=== PATIENT | male | born 1985 | race Two or more races ===

== ENCOUNTER 2025-01-30 01:23 | Emergency (ER) | payer BC, SELFPAY ==
[2025-01-30 01:24] VITALS: BMI 27.2
[2025-01-30 01:46] VITALS: BP 151/89; PULSE 68; RESP 17; TEMP 36.6; O2SAT 98
--- NOTE | 2025-01-30 01:54 | XR_ITS ---
Examination: Abdomen sonogram, Limited Date and time of exam: January 22, 2025, 0059 hrs. Indications: Right upper abdominal pain with vomiting today Technique: Real-time aguirre scale transabdominal sonographic images of the upper abdomen obtained. Findings: Gallbladder sludge Gallbladder wall 0.30 cm Common bile duct 0.4 cm Pancreatic head 2.8 cm Liver 16 cm fatty infiltration Normal hepatopedal portal venous flow Patent IVC Impression: Gallbladder sludge Mild gallbladder wall thickening, clinical correlation advised, consider HIDA scan or MRCP follow-up as clinically warranted
--- NOTE | 2025-01-30 01:54 | PD.EDRME ---
Rapid Medical Screening Exam RME Arrival date/time: 01/30/25 01:23 This is a case of 39-year-old male with no medical history came into the emergency room due to bilateral upper abdominal pain and epigastric pain for 3 days associated with nausea vomiting worsening of the pain thus patient decided to start consult here in the emergency room Chief Complaint: Abdominal Pain Time Seen by Provider: 01/30/25 01:53 Vital signs: Vital Signs Temperature 97.9 F 01/30/25 01:46 Pulse Rate 68 01/30/25 01:46 Respiratory Rate 17 01/30/25 01:46 Blood Pressure 151/89 H 01/30/25 01:46 Pulse Oximetry (%) 98 01/30/25 01:46 Oxygen Delivery Method Room Air 01/30/25 01:46
[2025-01-30 02:56] LABS: Basophils # (Auto) 0.1 Thou/mm3 (0.0-0.2); Basophils % (Auto) 1 % (0-2.5); Eosinophils # (Auto) 0.1 Thou/mm3 (0.0-0.5); Eosinophils % (Auto) 1 % (0-10); Hematocrit 42.4 % (41.0-53.0); Hemoglobin 14.7 g/dL (13.5-16.0); Immature Granulocytes Auto 0.05 Thou/mm3 (0.00-0.00); Lymphocytes # (Auto) 2.2 Thou/mm3 (1.0-4.8); Lymphocytes % (Auto) 20 % (10-50); Mean Corpuscular HGB Conc 34.7 g/dl (31.0-37.0); Mean Corpuscular Hemoglobin 29.7 pg (25.0-35.0); Mean Corpuscular Volume 86 fL (80-100); Monocytes # (Auto) 0.8 Thou/mm3 (0.0-0.8); Monocytes % (Auto) 8 % (0-12); Neutrophils # (Auto) 7.4 Thou/mm3 (1.8-7.7); Neutrophils % (Auto) 70 % (37-80); Nucleated Red Blood Cell # 0.00 Thou/mm3 (0.00-0.00); Nucleated Red Blood Cell % 0 /100 WBC (0); Platelet Count 305 Thou/mm3 (140-440); RDW Standard Deviation 39.3 fL (35.1-43.9); Red Blood Count 4.95 Miln/mm3 (4.50-5.90); White Blood Count 10.6 Thou/mm3 (3.8-10.6)
[2025-01-30 03:19] LABS: Alanine Aminotransferase 37 U/L (10-49); Albumin, Serum 4.9 gm/dL (3.5-5.0); Albumin/Globulin Ratio 1.7 (1.2-2.2); Alkaline Phosphatase 53 U/L (46-116); Anion Gap 7 (7-16); Aspartate Amino Transferase 25 U/L (0-34); BUN/Creatinine Ratio 15 Ratio (12-20); Bilirubin,Total 0.5 mg/dL (0.3-1.2); Blood Urea Nitrogen 12 mg/dL (9-23); Calcium 10.3 mg/dL (8.3-10.6); Calcium (Corrected) 10.3 mg/dL (8.5-10.1); Carbon Dioxide 27.9 mMol/L (20.0-31.0); Chloride 103 mMol/L (98-107); Creatinine (Component) 0.8 mg/dL (0.6-1.3); Estimated Creatinine Clearance 145.6 mL/min (>60); Globulin 2.9 gm/dL (2.3-3.5); Glucose 115 mg/dL (74-106); Lipase 46 U/L (12-53); Osmolality,Calculated 276 (275-295); Potassium 4.1 mMol/L (3.4-5.1); Sodium 138 mMol/L (136-145); Total Protein 7.8 gm/dL (5.7-8.2); eGFR > 60 See Note
--- NOTE | 2025-01-30 03:20 | PRELIM_ITS ---
Gallbladder ultrasound. January 30, 2025 0158 hours Clinical history: Gallstone Comparison: No prior study is available for comparison. Findings: The liver measures 16 cm and demonstrates increased echogenicity, compatible with fatty infiltration. No focal mass or intrahepatic biliary ductal dilatation is identified. The gallbladder wall is thickened, measuring 3 mm, with internal echoes consistent with sludge. No gallstones or pericholecystic fluid are demonstrated. The common bile duct is normal in caliber, measuring 4 mm. The pancreas is visualized to the extent possible and appears within normal limits. The main portal vein measures 10.5 mm in diameter with hepatopetal flow. The inferior vena cava is patent. No free fluid is demonstrated on the submitted images. Impression: Gallbladder wall thickening with sludge. No gallstones or pericholecystic fluid identified. Consider correlation with nuclear medicine hepatobiliary scan. Fatty liver (hepatic steatosis). Report Electronically Signed By: Santiago Gordon 01/30/2025 3:19:18 AM [EST]
[2025-01-30] MEDS: HYDROcodone/APAP 5/325 TABLET 1 TAB PO (03:21)
[2025-01-30] MEDS: ONDANSETRON ODT 4 MG TABRAP PO (03:21)
[2025-01-30 04:07] LABS: Collection Type, Urine Clean Catch
[2025-01-30 04:11] LABS: Bilirubin,Urine Negative (Negative); Blood,Urine Negative (Negative); Clarity,Urine Clear (Clear/Hazy); Color,Urine Lt-Yellow (Lt Yel-Yel); Glucose, Urine Negative (Negative); Ketones,Urine Negative (Negative); Leukocyte Esterase,Urine Negative (Negative); Nitrite,Urine Negative (Negative); PH,Urine 6.5 (5.0-7.0); Protein,Urine Negative (Neg - Trace); RBC,Urine 3 /hpf (0-3); Specific Gravity,Urine 1.027 (1.001-1.035); Squamous Epithelial Cell,Urine 1 /hpf (0-5); Urobilinogen,Urine Negative mg/dL (0.0-1.0); WBC,Urine 1 /hpf (0-5)
--- NOTE | 2025-01-30 04:23 | EDNOTE_ITS ---
ED Abdominal Pain RME/HPI General Chief Complaint: Abdominal Pain Stated complaint: MID UPPER ABDOMEN PAIN Time seen by provider: 01/30/25 01:53 Arrival date/time: 01/30/25 01:23 This is a case of 39-year-old male with no medical history came in in the emergency room due to bilateral upper abdominal pain associated with nausea vomiting for 2 days worsening his symptoms this patient decided to sought consult here in the emergency room denies any diarrhea constipation or blood in stool Limitations: no limitations RME / HPI RME / HPI narrative: 01/30/25 01:23 This is a case of 39-year-old male with no medical history came into the emergency room due to bilateral upper abdominal pain and epigastric pain for 3 days associated with nausea vomiting worsening of the pain thus patient decided to start consult here in the emergency room Related Data Previous Rx's ?Medication ?Instructions ?Recorded hydrocodone 5 mg-acetaminophen 325 1 tab PO Q6H PRN pa in #12 tabs 01/30/25 mg tablet ondansetron 4 mg disintegrating 4 mg PO Q8H #20 tabs 0 01/30/25 tablet Allergies Allergy/AdvReac Type Severity Reaction Status Date / Time No Known Allergies Allergy Verified 01/30/25 01:24 Review of Systems Review of Systems Systems Reviewed: All systems reviewed, normal except as documented Constitutional Constitutional: Reports system reviewed and no additional complaints, except as documented and Reports as per HPI Cardiovascular Cardiovascular: Reports system reviewed and no additional complaints, except as documented and Reports as per HPI Gastrointestinal Gastrointestinal: Reports system reviewed and no additional complaints, except as documented and Reports as per HPI Genitourinary Genitourinary: Reports system reviewed and no additional complaints, except as documented and Reports as per HPI Musculoskeletal Musculoskeletal: Reports system reviewed and no additional complaints, except as documented and Reports as per HPI Neurologic Neurologic: Reports system reviewed and no additional complaints, except as documented and Reports as per HPI Past Medical History Social History SMOKING STATUS: Current some day smoker ED Exam General Limitations: Present no limitations General appearance: Present alert, in no apparent distress and other (Patient is awake alert oriented not in distress nontoxic looking well-hydrated well- nourished) Head Head exam: Present atraumatic, normocephalic and normal inspection Eye Eye exam: Present normal appearance, PERRL and EOMI ENT ENT exam: Present normal exam, normal oropharynx and mucous membranes moist Neck Neck exam: Present normal inspection, full ROM and trachea midline; Absent tenderness, meningismus, lymphadenopathy or thyromegaly Chest Chest inspection: Present normal inspection and symmetric chest wall rise; Absent tenderness Respiratory Respiratory exam: Present normal lung sounds bilaterally; Absent respiratory distress, wheezes, stridor, accessory muscle use or prolonged expiratory phase Cardiovascular Cardiovascular exam: Present regular rate, normal rhythm and normal heart sounds; Absent bradycardia, tachycardia, irregular rhythm, systolic murmur or diastolic murmur Abdominal Exam Abdominal exam: Present soft, tenderness (Tenderness in the epigastric area and right upper quadrant no guarding no rebound no rigidity negative psoas negative straight or negative Rovsing sign McBurney's negative Meeks sign negative CVA tenderness) and normal bowel sounds; Absent distention, guarding, rebound, rigidity, diminished bowel sounds, hyperactive bowel sounds, hypoactive bowel sounds, organomegaly, psoas sign, obturator sign, Meeks's sign, Rovsing's sign, tenderness at McBurney's Point or hernia Extremities Exam Extremities exam: Present normal inspection and full ROM Back Exam Back exam: Present normal inspection and full ROM Neurological Exam Neurological exam: Present alert, oriented X3, CN II-XII intact and normal gait; Absent motor sensory deficit Psychiatric Psychiatric exam: Present normal affect and normal mood Skin Skin exam: Present warm, dry, intact and normal color Course Quality Measures none Orders Category Date Time Status US gall bladder Stat Exams 01/30/25 01:54 Taken CBC Stat Lab 01/30/25 02:46 Completed Comprehensive Metabolic Panel Stat Lab 01/30/25 02:46 Completed Lipase Stat Lab 01/30/25 02:46 Completed Urinalysis Stat Lab 01/30/25 03:59 Completed HYDROcodone*/APAP 5/325 [Clay 5/325] Med 01/30/25 03:04 Discontinued 1 tab PO X1 ONE Ondansetron Odt [Zofran Odt] Med 01/30/25 03:04 Discontinued 4 mg PO X1 ONE Vital Signs Vital signs: Vital Signs Temperature 97.9 F 01/30/25 01:46 Pulse Rate 68 01/30/25 01:46 Respiratory Rate 17 01/30/25 01:46 Blood Pressure 151/89 H 01/30/25 01:46 Pulse Oximetry (%) 98 01/30/25 01:46 Oxygen Delivery Method Room Air 01/30/25 01:46 Oxygen saturation is 98% in room air normal Abdominal Pain MDM MDM Narrative MDM Narrative:: This is a case of 39-year-old male with no medical history came in in the emergency room due to bilateral upper abdominal pain associated with nausea vomiting for 2 days worsening his symptoms this patient decided to sought consult here in the emergency room denies any diarrhea constipation or blood in stool physical examination patient is awake alert oriented not in distress nontoxic looking well-hydrated well-nourished patient vital signs stable abdominal exam noted mild tenderness in the epigastric area and right upper quadrant but no guarding no rebound no rigidity negative psoas negative straight and negative Rovsing's negative Darren's negative Meeks sign negative CVA tende rness the rest of the physical examination and neurological exam is normal and unremarkable blood test showed no leukocytosis no anemia kidney and liver function is normal no electrolyte imbalance lipase is normal urinalysis is normal ultrasound of the gallbladder showed a gallbladder sludge and gallbladder wall thickening radiologist suggested HIDA scan at the time of exam HIDA scan is not available he was advised to return in the emergency room around 12 noon to perform HIDA scan if needed he was also advised to follow-up with PCP in 2 days for reevaluation and to be referred to [employer] sales consultant for fatty liver and gallbladder sludge for any worsening symptoms or any emergent concern return precaution in the ER was advised Patient was discharged with comfortable condition walking with stable gait. Patient verbalized no further complains explained diagnosis and answered patient question. Patient is comfortable with the proposed management plan including the need to follow up with his/her primary care physician and any specialist if applicable Discussed patient for any urgent condition or worsening sx, He/She needed to go to emergency room immediately or call 911. Patient acknowledge the responsibility to follow up as instructed and to monitor her/his symptoms. For any persistence of the symptoms for more than 3-5 days return precaution advised. Discussed the result of the test and was given printed discharge instruction Patient data External records reviewed:: [facility] previous records Clinical information provided by:: patient Social determinants that could affect healthcare access:: none Patient has the following chronic illnesses:: None How is presenting disease/condition affected by chronic disease/condition?: no chronic disease Evaluation data The following diagnostics were reviewed and interpreted by me:: lab results and radiology exam(s) Lab and/or radiology exams considered but not ordered:: Reviewed Interpretation Summary: Reviewed Medications / Prescriptions Medications or Prescriptions considered but not ordered:: Given Medication administrations:: Medication Administration History Discontinued Medications Hydrocodone Bitart/Acetaminophen (Hydrocodone/Apap 5/325 Tablet) 1 tab PO X1 ONE Stop: 01/30/25 03:05 Last Admin: 01/30/25 03:21 Dose: 1 tab Documented By: JENN Ondansetron HCl (Ondansetron Odt 4 Mg Tabrap) 4 mg PO X1 ONE; Protocol Stop: 01/30/25 03:05 Last Admin: 01/30/25 03:21 Dose: 4 mg Documented By: JENN Given Consultations Consultation(s) initiated? (list below): No Diagnosis Differential diagnosis abdominal pain: abdominal pain and other (Cholelithiasis gastritis) Most likely diagnosis given after review of the tests above:: Gallbladder sludge fatty liver Admission Indicated Admission indicated?: not indicated Explain why admission is indicated or not indicated:: Not indicated Admission Request Was there a request for admission?: No Admission Attestation Admission request attestation: Not indicated Disposition Plan Disposition Plan: Discharge Discharge Attestation Discharge Attestation: The patient and all family members were given an opportunity to ask questions and understood the discharge instructions. Discharge instructions specifically effects, indications for sooner follow up or return to the emergency department, and the expected course of current diagnosis. Patient condition: Stable Discharge Plan Plan Patient Disposition: HOME (Self Care) Patient condition on transfer: Stable Prescriptions/Referrals Prescriptions/Med Rec: New hydrocodone-acetaminophen 5-325 mg tablet 1 tab PO Q6H MDD max 4 tabs per day PRN (Reason: pain) Qty: 12 0RF ondansetron 4 mg tablet,disintegrating 4 mg PO Q8H Qty: 20 0RF Referrals: No Primary/Family,Physician [Primary Care Provider] - In 1 week Problem List Clinical Impression: Abdominal pain, Gallbladder sludge, Fatty liver Patient/Caregiver Discharge Instructions Education Materials: Tests for Liver Disease, Abdominal Pain, Nonalcoholic Fatty Liver ... Additional Instructions: It is very important to return in the emergency room today around 12 noon for reevaluation of gallbladder sludge for possible HIDA scan follow-up with your primary care physician in 2 days for reevaluation and to be referred to [employer] sales consultant for further evaluation and treatment of gallbladder sludge and fatty liver recurrence persistent worsening symptoms or any emergent concern call 911 or go to the nearest emergency room take your medication as directed keep hydrated avoid fatty fried high cholesterol dairy food avoid alcohol soda or coffee Print Language: Swedish Stand Alone Forms: Silvia Award Info., Patient Portal Info Letter PA/AIR TRAFFIC CONTROL EQUIPMENT REPAIRER Supervising Physician PA/AIR TRAFFIC CONTROL EQUIPMENT REPAIRER Supervising Physician: Dr. Hamilton
== END 2025-01-30 04:29 | disposition home or self-care (01) ==
PROVIDERS: Nurse Practitioner Family; Emergency Provider Emergency Medicine
DX: K76.0 Fatty (change of) liver, not elsewhere classified (principal); K82.8 Other specified diseases of gallbladder
CPT/HCPCS: 36415; 76705; 80053; 81001; 83690; 85025; 99283; Q0162; A9270

== ENCOUNTER 2025-01-30 12:30 | Inpatient (IN) | payer BC, SELFPAY ==
[2025-01-30 12:34] VITALS: BP 131/79; PULSE 62; RESP 16; TEMP 36.7; O2SAT 97
--- NOTE | 2025-01-30 13:24 | PD.EDRECHK ---
ED Recheck Abnl Lab Rx-RME/HPI General Chief Complaint: General Adult/Misc Complain Stated Complaint: RETURNED FOR REEVAL INSTRUCTED Time Seen by Provider: 01/30/25 13:19 Arrival date/time: 01/30/25 12:30 Limitations: no limitations RME / HPI RME / HPI narrative: DR. JODY MOLINA ED EVALUATION: 39-year-old male with history of gallstones presents to the Emergency Department after being called to return for treatment or further studies following an ultrasound performed last night, which confirmed gallstones. At that time, he experienced right upper abdominal pain, but he reports no pain currently. He denies nausea, vomiting, cough, or other symptoms. Past medical history otherwise noncontributory. Social history notable for marijuana use. Related Data Previous Rx's ?Medication ?Instructions ?Recorded hydrocodone 5 mg-acetaminophen 325 1 tab PO Q6H PRN pain #12 tabs 01/30/25 mg tablet Allergies Allergy/AdvReac Type Severity Reaction Status Date / Time No Known Allergies Allergy Verified 01/30/25 12:33 Review of Systems Review of Systems Systems Reviewed: All systems reviewed, normal except as documented Past Medical History Social History SMOKING STATUS: Never smoker SUBSTANCE USE: does not use ALCOHOL: Never ED Exam General Limitations: Present no limitations General appearance: Present alert and in no apparent distress Head Head exam: Present atraumatic, normocephalic and normal inspection Eye Eye exam: Present normal appearance, PERRL and EOMI ENT ENT exam: Present normal exam, normal oropharynx and mucous membranes moist Neck Neck exam: Present normal inspection, full ROM and trachea midline Chest Chest inspection: Present normal inspection and symmetric chest wall rise Respiratory Respiratory exam: Present normal lung sounds bilaterally Cardiovascular Cardiovascular exam: Present regular rate, normal rhythm and normal heart sounds Abdominal Exam Abdominal exam: Present soft; Absent distention, tenderness, guarding or rebound Extremities Exam Extremities exam: Present normal inspection and full ROM Back Exam Back exam: Present normal inspection and full ROM Neurological Exam Neurological exam: Present alert, oriented X3, CN II-XII intact and normal gait Psychiatric Psychiatric exam: Present normal affect and normal mood Skin Skin exam: Present warm, dry, intact and normal color Course Quality Measures none Orders Category Date Time Status CT Screening NOW Care 01/30/25 16:18 Completed MRI Screening NOW Care 01/30/25 13:27 Completed NPO after Midnight ONCE Care 01/30/25 20:24 Completed Diet NPO after Midnight Diet 01/31/25 00:[address] abdomen pelvis w con Stat Exams 01/30/25 16:18 Completed MR MRCP Stat Exams 01/31/25 Completed US abdomen limited Stat Exams 01/30/25 16:08 Completed Blood Culture (Lab) Stat Lab 01/30/25 19:55 Results CBC Stat Lab 01/30/25 13:55 Completed CMP [Comprehensive Metabolic Panel] Stat Lab 01/30/25 13:55 Completed Lipase Stat Lab 01/30/25 13:55 Completed cefTRIAXone/D5w 1gm IV premix [Rocephin/D5w 1gm IV Med 01/30/25 19:01 Discontinued premix] 1 gm in 50 ml IV STAT metroNIDAZOLE/NS 500 MG IVPB [Flagyl 500 mg IV] Med 01/30/25 19:01 Discontinued 500 mg in 100 ml IV STAT Vital Signs Vital signs: Vital Signs Temperature 98.1 F 01/30/25 12:34 Pulse Rate 62 01/30/25 12:34 Respiratory Rate 16 01/30/25 12:34 Blood Pressure 131/79 H 01/30/25 12:34 Pulse Oximetry (%) 97 01/30/25 12:34 Oxygen Delivery Method Room Air 01/30/25 12:34 Recheck / Abnormal Lab / Rx MDM Narrative MDM Narrative:: Patient presents for follow-up for his right upper quadrant abdominal pain. Patient was told to return to the emergency department today for a HIDA or MRCP. Unfortunately we do not have HIDA or MRCP capabilities. Patient has been asymptomatic, no fever no abdominal pain. I ordered repeat ultrasound as well as repeat labs. Repeat labs with normal T. bili however now has a mild transaminitis. CT scan shows findings concerning for possible acalculous cholecystitis. Will provide patient with antibiotics, care transitioned to oncoming provider Dr. Hamilton. Patient is pending results of his workup and safe dispo. I, Jacqueline Carlos, am scribing for and in the presence of Dr. Sebastian. Patient data External records reviewed:: [facility] previous records Clinical information provided by:: patient and spouse Social determinants that could affect healthcare access:: substance use (marijuana use) Patient has the following chronic illnesses:: Gallstones diagnosed last night. How is presenting disease/condition affected by chronic disease/condition?: exacerbated by Evaluation data The following diagnostics were reviewed and interpreted by me:: lab results and radiology exam(s) Lab and/or radiology exams considered but not ordered:: none Interpretation Summary: See MDM narrative above. Medications / Prescriptions Medications or Prescriptions considered but not ordered:: none Medication administrations:: Medication Administration History Discontinued Medications Bupivacaine HCl (Bupivacaine Mpf 0.5% 30 Ml Vial) Confirm Administered Dose 30 ml .ROUTE .STK-MED ONE Stop: 01/31/25 11:30 Cefoxitin Sodium (Cefoxitin Sod Inj 1 Gm Vial) Confirm Administered Dose 2 gm .ROUTE .STK-MED ONE Stop: 01/31/25 12:24 Dexamethasone Sodium Phosphate (Dexamethasone Sod Phos Inj 10 Mg/Ml Vial) Confirm Administered Dose 10 mg .ROUTE .STK-MED ONE Stop: 01/31/25 12:09 Fentanyl Citrate (Fentanyl Cit Inj 50 Mcg/Ml Amp 2ml) Confirm Administered Dose 100 mcg .ROUTE .STK-MED ONE Stop: 01/31/25 11:12 Fentanyl Citrate (Fentanyl Cit Inj 50 Mcg/Ml Amp 2ml) 25 mcg IVP Q5M PRN PRN Reason: PAIN SCALE 1-3 (mild Stop: 01/31/25 14:29 Last Admin: 01/31/25 14:10 Dose: 25 mcg Documented By: Admin: 01/31/25 14:04 Dose: 25 mcg Documented By: ANGELIC Hydromorphone HCl (Hydromorphone Inj 2 Mg/Ml Vial) 0.4 mg IVP Q5M PRN PRN Reason: PAIN SCALE 7-10 (Severe Stop: 01/31/25 14:29 Last Admin: 01/31/25 14:15 Dose: 0.4 mg Documented By: ANGELIC Ceftriaxone Sodium/Dextrose (Rocephin/D5w 1gm Iv Premix) 1 gm in 50 mls @ 100 mls/hr IV STAT STA Stop: 01/30/25 19:30 Last Infusion: 01/30/25 20:15 Dose: Infused Documented By: Admin: 01/30/25 19:42 Dose: 100 mls/hr Documented By: JENN Metronidazole (Flagyl 500 Mg Iv) 500 mg in 100 mls @ 200 mls/hr IV STAT STA Stop: 01/30/25 19:30 Last Infusion: 01/30/25 22:33 Dose: Infused Documented By: Admin: 01/30/25 20:42 Dose: 200 mls/hr Documented By: JENN Sodium Chloride (Ns) 1,000 mls @ 100 mls/hr IV .Q10H MIRI Stop: 01/31/25 06:29 Last Admin: 01/30/25 21:31 Dose: 100 mls/hr Documented By: JENN Acetaminophen (Ofirmev Inj) Confirm Administered Dose 100 mls @ ud IV .STK-MED ONE Stop: 01/31/25 12:20 Ketorolac Tromethamine (Ketorolac Inj 30 Mg/Ml Vial) Confirm Administered Dose 30 mg .ROUTE .STK-MED ONE Stop: 01/31/25 12:09 Midazolam HCl (Midazolam Inj 1 Mg/Ml Vial 2 Ml) Confirm Administered Dose 2 mg .ROUTE .STK-MED ONE Stop: 01/31/25 11:12 Morphine Sulfate (Morphine Sulf Inj 4 Mg/Ml Vial) 2 mg IV Q3HR PRN PRN Reason: PAIN SCALE 4-6 (Moderate Stop: 02/04/25 20:34 Morphine Sulfate (Morphine Sulf Inj 4 Mg/Ml Vial) 1 mg IV Q3HR PRN PRN Reason: PAIN SCALE 4-6 (Moderate Stop: 02/04/25 20:34 Morphine Sulfate (Morphine Sulf Inj 4 Mg/Ml Vial) 3 mg IV Q5M PRN PRN Reason: PAIN SCALE 4-6 (Moderate Stop: 01/31/25 14:29 Ondansetron HCl (Ondansetron Inj 2 Mg/Ml Inj 2 Ml) 4 mg IVP Q6H PRN; Protocol PRN Reason: NAUSEA OR VOMITING Stop: 03/01/25 20:23 Ondansetron HCl (Ondansetron Inj 2 Mg/Ml Inj 2 Ml) Confirm Administered Dose 4 mg .ROUTE .STK-MED ONE Stop: 01/31/25 12:09 Ondansetron HCl (Ondansetron Inj 2 Mg/Ml Inj 2 Ml) 4 mg IVP X1 ONE Stop: 01/31/25 12:29 Pantoprazole Sodium (Pantoprazole Inj 40 Mg Vial) 40 mg IVP QDAY MIRI Stop: 03/01/25 20:29 Last Admin: 01/30/25 21:30 Dose: 40 mg Documented By: JENN Propofol (Propofol Inj 10 Mg/Ml Vial 20 Ml) Confirm Administered Dose 200 mg IV .STK-MED ONE Stop: 01/31/25 11:12 Rocuronium Moore (Rocuronium Inj 10 Mg/Ml Vial 10 Ml) Confirm Administered Dose 100 mg .ROUTE .STK-MED ONE Stop: 01/31/25 12:09 Sugammadex Sodium (Sugammadex Inj 100 Mg/Ml 2ml Vial) Confirm Administered Dose 200 mg .ROUTE .STK-MED ONE Stop: 01/31/25 11:13 see above if any Consultations Consultation(s) initiated? (list below): No Diagnosis Recheck Differential Diagnosis: other (Asymptomatic cholelithiasis, biliary colic, and resolved acute cholecystitis.) Most likely diagnosis given after review of the tests above:: Acalculous cholecystitis Admission Indicated Admission indicated?: not indicated Explain why admission is indicated or not indicated:: Patient signed out to oncoming provider Admission Request Was there a request for admission?: No Disposition Plan Disposition Plan: other (specify) (Signed out) Critical Care Time Critical Care Time Critical Care Time: Yes Total Critical Care Time (min.): 36 Attestation: Total critical care time: Approximately?36?minutes Due to a high probability of clinically significant, life threatening deterioration, the patient required my highest level of preparedness to intervene emergently and I personally spent this critical care time directly and personally managing the patient. This critical care time included obtaining a history; examining the patient; pulse oximetry; ordering and review of studies; arranging urgent treatment with development of a management plan; evaluation of patient's response to treatment; frequent reassessment; and, discussions with other providers. This critical care time was performed to assess and manage the high probability of imminent, life-threatening deterioration that could result in multi-organ failure. It was exclusive of separately billable procedures and treating other patients and teaching time. Please see MDM section and the rest of the note for further information on patient assessment and treatment. Discharge Plan Plan Patient Disposition: Admit Acute Care w/in Hospital Patient condition on transfer: Stable Problem List Clinical Impression: Acalculous cholecystitis Patient/Caregiver Discharge Instructions Other Activity Instructions:: You may resume showering in 2 days, on 02/02 It is okay to get incisions wet at that time, pat them dry after Your incisions have skin glue on them which will fall off on its own and does not need to be replaced Your stitches will not need to be removed Avoid bathing or swimming for 2 weeks During the surgery we fill your abdomen with air in order to see the structures. Some of this air tends to linger and cause pain that is referred to the shoulder as well as pain with deep breaths. This will get better with time. Being out of bed and walking will help the air to absorb faster You may take Percocet as needed for moderate to severe pain. You may also take ibuprofen in between doses of Percocet as needed or instead of Percocet for mild to moderate pain If you develop worsening pain, nausea/vomiting, fever or signs of jaundice please seek care in ER
[2025-01-30 14:19] LABS: Basophils # (Auto) 0.1 Thou/mm3 (0.0-0.2); Basophils % (Auto) 1 % (0-2.5); Eosinophils # (Auto) 0.1 Thou/mm3 (0.0-0.5); Eosinophils % (Auto) 2 % (0-10); Hematocrit 45.0 % (41.0-53.0); Hemoglobin 15.2 g/dL (13.5-16.0); Immature Granulocytes Auto 0.03 Thou/mm3 (0.00-0.00); Lymphocytes # (Auto) 2.5 Thou/mm3 (1.0-4.8); Lymphocytes % (Auto) 30 % (10-50); Mean Corpuscular HGB Conc 33.8 g/dl (31.0-37.0); Mean Corpuscular Hemoglobin 28.8 pg (25.0-35.0); Mean Corpuscular Volume 85 fL (80-100); Monocytes # (Auto) 0.9 Thou/mm3 (0.0-0.8); Monocytes % (Auto) 11 % (0-12); Neutrophils # (Auto) 4.7 Thou/mm3 (1.8-7.7); Neutrophils % (Auto) 57 % (37-80); Nucleated Red Blood Cell # 0.00 Thou/mm3 (0.00-0.00); Nucleated Red Blood Cell % 0 /100 WBC (0); Platelet Count 294 Thou/mm3 (140-440); RDW Standard Deviation 38.4 fL (35.1-43.9); Red Blood Count 5.27 Miln/mm3 (4.50-5.90); White Blood Count 8.4 Thou/mm3 (3.8-10.6)
[2025-01-30 14:36] LABS: Alanine Aminotransferase 69 U/L (10-49); Albumin, Serum 4.6 gm/dL (3.5-5.0); Albumin/Globulin Ratio 1.8 (1.2-2.2); Alkaline Phosphatase 53 U/L (46-116); Anion Gap 9 (7-16); Aspartate Amino Transferase 50 U/L (0-34); BUN/Creatinine Ratio 14 Ratio (12-20); Bilirubin,Total 0.7 mg/dL (0.3-1.2); Blood Urea Nitrogen 11 mg/dL (9-23); Calcium 10.2 mg/dL (8.3-10.6); Calcium (Corrected) 10.2 mg/dL (8.5-10.1); Carbon Dioxide 28.3 mMol/L (20.0-31.0); Chloride 102 mMol/L (98-107); Creatinine (Component) 0.8 mg/dL (0.6-1.3); Estimated Creatinine Clearance 145.6 mL/min (>60); Globulin 2.6 gm/dL (2.3-3.5); Glucose 95 mg/dL (74-106); Lipase 38 U/L (12-53); Osmolality,Calculated 276 (275-295); Potassium 3.8 mMol/L (3.4-5.1); Sodium 139 mMol/L (136-145); Total Protein 7.2 gm/dL (5.7-8.2); eGFR > 60 See Note
--- NOTE | 2025-01-30 16:08 | XR_ITS ---
Examination: Abdomen sonogram, Limited Date and time of exam: January 22, 2025, 1753 hrs. Indications: History abdominal pain, gallbladder sludge with gallbladder wall thickening on ultrasound 01/22/2025 0059 hrs. Technique: Real-time aguirre scale transabdominal sonographic images of the upper abdomen obtained. Findings: Gallstones in the gallbladder neck Gallbladder wall 0.3 cm no edema Common bile duct 0.4 cm Pancreatic head 2.3 cm Liver 15.6 cm fatty infiltration Normal hepatopedal portal venous flow Patent IVC Impression: Cholelithiasis, negative for cholecystitis
--- NOTE | 2025-01-30 16:18 | XR_ITS ---
Examination: CT abdomen with intravenous contrast CT pelvis with intravenous contrast 2-D coronal reconstructions 2-D sagittal reconstructions Date and time of exam:January 30, 2025, 0514 hrs. Indications: Right upper abdominal pain and vomiting beginning 2 days ago, mild gallbladder wall thickening on gallbladder sonogram 01/30/2025 0158 hrs.. CTDI: vol (mGy) 8.52 DLP: (mGycm) 588 Technique: Multiple axial sections of the abdomen and pelvis have been obtained. 64 slice high-resolution scanner used. 3 mm axial sections have been obtained, post intravenous injection 60 cc [id number] 2-D sagittal, coronal reconstructions obtained. Low dose protocols were performed. One or more of the following dose reduction techniques were used; automated exposure control, adjustment of the mA and/or KV according to patient size, use of iterative reconstruction technique. Findings: No focal liver or splenic lesion The gallbladder wall does appear thickened and edematous No pancreatic mass No renal or ureteral calculi, no hydronephrosis Aorta normal size Normal appendix Colonic diverticulosis, no diverticulitis Mild urinary bladder wall thickening Impression: Findings most consistent with acute acalculous cholecystitis As clinically warranted, consider MRCP follow-up
[2025-01-30 16:53] VITALS: BP 134/75; PULSE 53; RESP 14; TEMP 36.7; O2SAT 99
--- NOTE | 2025-01-30 18:59 | PD.EDADDENDU ---
Emergency Room Addendum Addendum Narrative: 1859: Care assumed from Dr. Sebastian (emergency physician). Past medical, surgical, social and family history reviewed. Vitals and home medications reviewed. Results and treatment plan discussed. I will assume the care of the patient at this time and will follow the patient, pending CT and US. The following addendum documentation note is intended to reflect any pending information, findings, or radiology results not included in the patient?s initial chart by the previous shift scribe. RADIOLOGY Abdomen/Pelvis: Findings: No focal liver or splenic lesion The gallbladder wall does appear thickened and edematous No pancreatic mass No renal or ureteral calculi, no hydronephrosis Aorta normal size Normal appendix Colonic diverticulosis, no diverticulitis Mild urinary bladder wall thickening Impression: Findings most consistent with acute acalculous cholecystitis As clinically warranted, consider MRCP follow-up Abdomen US: 1909: Assumed care of this pleasant 39 y/o male seen 1 day [employer]IST with generalized upper abdominal pain who underwent gall bladder US with mild gall bladder wall thickening and sludge noted. Instructed to return today for HIDA scan. No recent fever or vomiting. Abdominal exam unremarkable. Patient underwent repeat US demonstrating likely acute acalculis cholecystitis. Will consult with surgeon for admission. Final diagnosis is acute acalculus cholecystitis. Disposition, admit to medicine, surgery to consult. 1910: Dr. Quiroga made aware of the patient?s HPI, PMHx, lab and/or radiology results. Discussed treatment plan. Will consult an admission to the hospitalist. 19:43: Discussed with resident physician for Dr. Vasquez for admission. Reviewed the patient?s HPI, PMHx, lab and/or radiology results. Discussed treatment plan. Will consult an admission to the hospitalist.
[2025-01-30] MEDS: cefTRIAXone/D5w 1gm IV premix 1 GM/50 ML BAG IV (19:42)
--- NOTE | 2025-01-30 20:27 | PD.RESHP ---
Documentation for date of: 01/30/25 HPI History of Present Illness History of present illness: Mr. Pierre is a 39-year-old male patient with no signal in the past medical history presented to the ED on 12/30/24 with a chief complaint of abdominal pain. Patient report 1 day of epigastric abdominal pain. Per patient he was in the ED earlier today they did abdominal ultrasound and showed presence of cholelithiasis, and was sent home. Patient returns ED this afternoon after being called furer management for the study for ultrasound finding performed prior. Patient reports acute constant epigastric pain that radiates to the back. However at the moment described the pain to be more crampy in nature. Associated with nausea and 1 episode of vomiting. Patient report this is the first time is having this symptoms. Denies fever, chills, shortness of breath, chest pain, myalgias, urinary symptoms or bowel changes. Denies recent sick contact. ED Course: Initial vitals were BP 131/79, pulse 62, RR 16, temp 98.1, O2 sat 97% on room air Labs labs unremarkable except for the present of AST 50, ALT 69. Lipase normal, UA clean. Imaging included gallbladder ultrasound that showed liver 16 cm fatty infiltration, gallbladder wall is 0.3 cm, common bile duct 0.4 cm. Abdominal ultrasound showed cholelithiasis. Abdominal/pelvis CT showed findings consistent of acute acalculous cholecystitis with gallbladder wall thickening and edematous In the ED, patient was given ceftriaxone 1gm x 1 and metronidazole 50 mg x1 ED provider contacted General surgeon Dr. Quiroga and was admitted for laparoscopic cholecystectomy tomorrow Patient was admitted for evaluation and management of acalculous cholecystitis. Review of Systems Review of systems otherwise negative except what is mentioned above. 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 Family History: Diabetes mellitus in the family Surgical History: None Social History: Denies history of smoking, occasional social drinker. Daily THC. Current Medications: none Allergies: No known drug allergies Exam Vital Signs Temp Pulse Resp BP Pulse Ox O2 Del Method 98.0 F 53 L 14 134/75 H 99 Room Air 01/30/25 16:53 01/30/25 16:53 01/30/25 16:53 01/30/25 16:53 01/30/25 16:53 01/30/25 16:53 Narrative Exam General: Alert, no acute distress.Conversational and non-toxic appearing. Skin: Warm, dry, intact. No rash or ecchymoses. Head: Normocephalic, atraumatic. Eye: Normal conjunctiva, PERRL. Throat: Oral mucosa moist. No obvious lesions in oropharynx. Cardiovascular: Regular rate and rhythm, no murmur, +S1/S2. Respiratory: Lungs are clear to auscultation, respirations unlabored, no crackles, no wheezing. Gastrointestinal: Soft, epigastric tenderness, non-distended. No guarding or rebound tenderness. Extremities: No edema, no cyanosis, no clubbing. Neuro: Alert and oriented x3.No focal deficits observed. Conversant, moving all extremities. No overt cerebellar signs/incoordination. Psychiatric: Cooperative, appropriate affect Results: Labs 01/31/25 05:07 01/31/25 05:07 Labs: Short CBC 01/30/25 Range/Units 13:55 WBC 8.4 (3.8-10.6) Thou/mm3 Hgb 15.2 (13.5-16.0) g/dL Hct 45.0 (41.0-53.0) % Plt Count 294 (140-440) Thou/mm3 BMP 01/30/25 13:55 Sodium 139 Potassium 3.8 Chloride 102 Carbon Dioxide 28.3 BUN 11 Creatinine 0.8 Glucose 95 Calcium 10.2 Liver Function 01/30/25 Range/Units 13:55 Total Bilirubin 0.7 (0.3-1.2) mg/dL AST 50 H (0-34) U/L ALT 69 H (10-49) U/L Alkaline Phosphatase 53 (46-116) U/L Albumin 4.6 (3.5-5.0) gm/dL Quality Measures Quality Measures none Medications Home Medications and Allergies Allergies Allergy/AdvReac Type Severity Reaction Status Date / Time No Known Allergies Allergy Verified 01/30/25 12:33 Visit Medications Sodium Chloride (Ns) 1,000 mls @ 100 mls/hr IV .Q10H MIRI Stop: 01/31/25 06:29 Ondansetron HCl (Ondansetron Inj 2 Mg/Ml Inj 2 Ml) 4 mg IVP Q6H PRN; Protocol PRN Reason: NAUSEA OR VOMITING Stop: 03/01/25 20:23 Pantoprazole Sodium (Pantoprazole Inj 40 Mg Vial) 40 mg IVP QDAY MIRI Stop: 03/01/25 20:29 Discontinued Medications Ceftriaxone Sodium/Dextrose (Rocephin/D5w 1gm Iv Premix) 1 gm in 50 mls @ 100 mls/hr IV STAT STA Stop: 01/30/25 19:30 Last Admin: 01/30/25 19:42 Dose: 100 mls/hr Metronidazole (Flagyl 500 Mg Iv) 500 mg in 100 mls @ 200 mls/hr IV STAT STA Stop: 01/30/25 19:30 Assessment & Plan Plan Mr. Pierre is a 39-year-old male patient with no signal in the past medical history presented to the ED on 12/30/24 with a chief complaint of abdominal pain. Found to have acute cholecystitis on abdominal/pelvis CT. Admitted for evaluation and management acute acalculous cholecystitis #Acute acalculous cholecystitis #Elevated liver enzymes. #Nausea and vomiting Presented with acute constant epigastric abdominal pain that radiates to the back associated with nausea and vomiting. Patient denies fever, chills. Physical exam significant for epigastric area tender to palpation. Given patient clinical presentation and abdominal imaging and labs finding of elevated liver enzymes AST and ALT raises suspicion for acute cholecystitis in the presence of choledocholithiasis. AST 50, ALT 69. Alkaline phosphatase 53 (WNL), lipase 38 (WNL) In ED patient received 1 dose of ceftriaxone and metronidazole. Gallbladder ultrasound shows mild gallbladder wall thickening Abdominal ultrasound showed cholelithiasis With abdomen/pelvis CT showed acute acalculous cholecystitis with gallbladder wall appeared thickening and edematous - General Surgery consulted, recommendation appreciated-laparoscopic cholecystectomy tomorrow - Started NS at 100 cc/h - Patient made n.p.o. at midnight - Started Zofran 4 mg as needed for nausea vomiting - Started morphine 2 mg IV for pain - Started Protonix 40 mg IV daily - PTt/INR ordered, pain - Blood culture ordered, pending #Asymptomatic bradycardia Reports no symptoms of chest pain/ sob. Borderline heart rate of 58-60 Continue to monitor. F/U with PCP outpatient. Hospital management: Lines: peripheral IV Diet: N.p.o. at midnight GI prophylaxis: pantoprazole DVT prophylaxis: SCDs Disposition: MedSurg for laparoscopic cholecystectomy tomorrow CODE STATUS: Full code Patient seen and assessed under supervision of attending physician Dr.Alhalaibeh Randi Lugo MD PGY-1, Internal Medicine Please note: this document was transcribed using voice recognition technology; minor inaccuracies may be present. Attending Provider Attestation/Addendum After examination of the patient and review of the clinical data I feel that this patient needs admission to the hospital for further treatment/evaluation. Plan of care discussed with patient and is in agreement. I Medhat Vasquez MD, attest that I was physically present for contreras portions of evaluation, and examined patient, labs and imagings and plan of care were discussed with IM residents team, and I agree with the findings and plans documented above.
[2025-01-30] MEDS: metroNIDAZOLE/NS 500 MG IVPB 500 MG/100 ML BAG 200 MG IV (20:42)
[2025-01-30] MEDS: SODIUM CHLORIDE 0.9% 1000 ML 1,000 ML 100 ML IV (21:31)
[2025-01-30 23:05] VITALS: BMI 26.9
[2025-01-31] VITALS (12 sets, daily range): BP systolic 115–144; BP diastolic 67–89; PULSE 54–84; RESP 12–20; TEMP 36.1–36.8; O2SAT 96–100
--- NOTE | 2025-01-31 | XR_ITS ---
MRI abdomen, without contrast. MRCP Date and time of exam: January 31, 2025, 0926 hours INDICATIONS: Right upper abdominal pain and vomiting this week, gallstones on abdomen sonogram 01/30/2025 Technique: Multiple axial and coronal images of the abdomen have been obtained with the Siemens 1.5T MRI scanner. Images obtained included T1 weighted transverse images, T2-weighted transverse images, T2-weighted transverse images fat-suppressed, T2 weighted haste fat suppressed transverse images, T1 weighted images, in and out of phase images, T2-weighted coronal images, breath hold, T2 weighted haze coronal images as well as T2 weighted coronal thick slab images, MRCP. Findings: No focal liver lesions Gallstones Contracted gallbladder Mild edema around the fundus of the gallbladder image 7 Spleen is not enlarged No pancreatic edema or dilated pancreatic duct No hydronephrosis IMPRESSION: Cholelithiasis, suspicious for cholecystitis Normal size common hepatic common bile duct, no common hepatic or common bile duct stones
[2025-01-31 05:48] LABS: Basophils # (Auto) 0.0 Thou/mm3 (0.0-0.2); Basophils % (Auto) 0 % (0-2.5); Eosinophils # (Auto) 0.2 Thou/mm3 (0.0-0.5); Eosinophils % (Auto) 2 % (0-10); Hematocrit 43.7 % (41.0-53.0); Hemoglobin 14.8 g/dL (13.5-16.0); Immature Granulocytes Auto 0.02 Thou/mm3 (0.00-0.00); Lymphocytes # (Auto) 2.2 Thou/mm3 (1.0-4.8); Lymphocytes % (Auto) 25 % (10-50); Mean Corpuscular HGB Conc 33.9 g/dl (31.0-37.0); Mean Corpuscular Hemoglobin 29.2 pg (25.0-35.0); Mean Corpuscular Volume 86 fL (80-100); Monocytes # (Auto) 0.8 Thou/mm3 (0.0-0.8); Monocytes % (Auto) 8 % (0-12); Neutrophils # (Auto) 5.8 Thou/mm3 (1.8-7.7); Neutrophils % (Auto) 64 % (37-80); Nucleated Red Blood Cell # 0.00 Thou/mm3 (0.00-0.00); Nucleated Red Blood Cell % 0 /100 WBC (0); Platelet Count 284 Thou/mm3 (140-440); RDW Standard Deviation 39.8 fL (35.1-43.9); Red Blood Count 5.06 Miln/mm3 (4.50-5.90); White Blood Count 9.0 Thou/mm3 (3.8-10.6)
[2025-01-31 06:02] LABS: INR 1.0 (0.9-1.3); Partial Thromboplastin Time 25.4 Seconds (22.0-36.0); Prothrombin Time 10.9 Seconds (9.0-12.2)
[2025-01-31 06:07] LABS: Alanine Aminotransferase 56 U/L (10-49); Albumin, Serum 4.2 gm/dL (3.5-5.0); Albumin/Globulin Ratio 1.8 (1.2-2.2); Alkaline Phosphatase 49 U/L (46-116); Anion Gap 7 (7-16); Aspartate Amino Transferase 28 U/L (0-34); BUN/Creatinine Ratio 12 Ratio (12-20); Bilirubin,Total 0.7 mg/dL (0.3-1.2); Blood Urea Nitrogen 11 mg/dL (9-23); Calcium 9.5 mg/dL (8.3-10.6); Calcium (Corrected) 9.5 mg/dL (8.5-10.1); Carbon Dioxide 29.6 mMol/L (20.0-31.0); Chloride 104 mMol/L (98-107); Creatinine (Component) 0.9 mg/dL (0.6-1.3); Estimated Creatinine Clearance 129.4 mL/min (>60); Globulin 2.3 gm/dL (2.3-3.5); Glucose 107 mg/dL (74-106); Magnesium 2.3 mg/dL (1.6-2.6); Osmolality,Calculated 280 (275-295); Phosphorous 3.7 mg/dL (2.4-5.1); Potassium 4.2 mMol/L (3.4-5.1); Sodium 141 mMol/L (136-145); Total Protein 6.5 gm/dL (5.7-8.2); eGFR > 60 See Note
--- NOTE | 2025-01-31 08:13 | ESPR_ITS ---
<Statement entered by Joyce Jurado MD - 02/01/25 14:43> Patient seen and examined at side. Patient denies any right lower quadrant pain at this time. However patient did mention that he had severe right lower quadrant pain on Friday. General surgery was consulted, and will take patient to the OR today for laparoscopic cholecystectomy. IV pain control, IV fluids, and will follow-up postsurgery. MRCP showed cholelithiasis with suspicion for cholecystitis due to mild edema seen in the fundus of the gallbladder, however no stones were seen in the cystic duct. I discussed with and supervised the biology intern physician who took care of this patient. I personally saw and examined the patient and discussed the assessment and plan with the entire medicine team, including my attending Dr. Harry, I agree with most of the assessment and plan as documented below Joyce Jurado M.D. PGY-3 Disclaimer: Despite multiple revisions, due to the dictation software being used, the document bellow may not be free of grammatical errors including phonetic/typographic errors. However, this does not deter from our commitment to providing health care in the patient's best interest in mind. <Statement entered by Aminta Ventura MD - 01/31/25 16:13> Note reviewed, I agree with most of its contents and agree with the patient's care as documented by Dr. Chiang. The patient's management plan was discussed with my attending physician Dr. Harry. Aminta Ventura, PGY-2 Documentation for date of: 01/31/25 Subjective Subjective Interval history: Mr. Pierre is a 39-year-old male patient with no signal in the past medical history presented to the ED on 12/30/24 with a chief complaint of abdominal pain. Found to have acute cholecystitis on abdominal/pelvis CT. Admitted for evaluation and management acute acalculous cholecystitis 01/31/2025: Patient seen and examined at bedside. no acute concerns, pt aware of plan to go to surgery today. imaging shows cholelithiasis and cholecystitis. will proceed with marylou hyman with Dr. Macedo Exam Vital Signs Temp Pulse Resp BP Pulse Ox O2 Del Method 98.2 F 57 L 16 118/76 98 Room Air 01/31/25 08:00 01/31/25 08:00 01/31/25 08:00 01/31/25 08:00 01/31/25 08:00 01/31/25 08:00 Narrative Exam General: Alert, no acute distress.Conversational and non-toxic appearing. Skin: Warm, dry, intact. No rash or ecchymoses. Head: Normocephalic, atraumatic. Eye: Normal conjunctiva, PERRL. Throat: Oral mucosa moist. No obvious lesions in oropharynx. Cardiovascular: Regular rate and rhythm, no murmur, +S1/S2. Respiratory: Lungs are clear to auscultation, respirations unlabored, no crackles, no wheezing. Gastrointestinal: Soft, mild RUQ tenderness, non-distended. No guarding or rebound tenderness. Extremities: No edema, no cyanosis, no clubbing. Neuro: Alert and oriented x3.No focal deficits observed. Conversant, moving all extremities. No overt cerebellar signs/incoordination. Psychiatric: Cooperative, appropriate affect Objective Labs 01/31/25 05:07 01/31/25 05:07 Labs: Laboratory Results - last 24 hr 01/30/25 01/31/25 13:55 05:07 WBC 8.4 9.0 RBC 5.27 5.06 Hgb 15.2 14.8 Hct 45.0 43.7 MCV 85 86 MCH 28.8 29.2 MCHC 33.8 33.9 RDW Std Deviation 38.4 39.8 Plt Count 294 284 Neut % (Auto) 57 64 Lymph % (Auto) 30 25 Wilkin % (Auto) 11 8 Eos % (Auto) 2 2 Baso % (Auto) 1 0 Neut # (Auto) 4.7 5.8 Lymph # (Auto) 2.5 2.2 Wilkin # (Auto) 0.9 H 0.8 Eos # (Auto) 0.1 0.2 Baso # (Auto) 0.1 0.0 Immature Gran # (Auto) 0.03 H 0.02 H Absolute Nucleated RBC 0.00 0.00 Immature Gran % 0 0 Nucleated RBC % 0 0 PT 10.9 INR 1.0 APTT 25.4 Sodium 139 141 Potassium 3.8 4.2 Chloride 102 104 Carbon Dioxide 28.3 29.6 Anion Gap 9 7 BUN 11 11 Creatinine 0.8 0.9 Estim Creat Clear Calc 145.6 129.4 eGFR > 60 > 60 BUN/Creatinine Ratio 14 12 Glucose 95 107 H Calculated Osmolality 276 280 Calcium 10.2 9.5 Corrected Calcium 10.2 H 9.5 Phosphorus 3.7 Magnesium 2.3 Total Bilirubin 0.7 0.7 AST 50 H 28 ALT 69 H 56 H Alkaline Phosphatase 53 49 Total Protein 7.2 6.5 Albumin 4.6 4.2 Globulin 2.6 2.3 Albumin/Globulin Ratio 1.8 1.8 Lipase 38 Quality Measures Quality Measures VTE prophylaxis Assessment & Plan Assessment Current Active Medications: Generic Name Dose Route Start Last Admin Trade Name Freq PRN Reason Stop Dose Admin Morphine Sulfate 1 mg 01/30/25 23:32 Morphine Sulf Inj 4 Mg/Ml Vial IV 02/04/25 20:34 Q3HR PRN PAIN SCALE 4-6 (Moderate Ondansetron HCl 4 mg 01/30/25 20:24 Ondansetron Inj 2 Mg/Ml Inj 2 Ml IVP 03/01/25 20:23 Q6H PRN NAUSEA OR VOMITING Protocol Plan Mr. Pierre is a 39-year-old male patient with no signal in the past medical history presented to the ED on 12/30/24 with a chief complaint of abdominal pain. Found to have acute cholecystitis on abdominal/pelvis CT. Admitted for evaluation and management acute acalculous cholecystitis, found to have cholelithiasis on imaging pending lap yenni with dr. macedo #Acute cholecystitis with cholelithiasis #transaminitis - resolving #Nausea and vomiting- resolved Presented with acute constant epigastric abdominal pain that radiates to the back associated with nausea and vomiting. Patient denies fever, chills. Physical exam significant for epigastric area tender to palpation. Given patient clinical presentation and abdominal imaging and labs finding of elevated liver enzymes AST and ALT raises suspicion for acute cholecystitis in the presence of choledocholithiasis. AST 50, ALT 69. Alkaline phosphatase 53 (WNL), lipase 38 (WNL) In ED patient received 1 dose of ceftriaxone and metronidazole. Gallbladder ultrasound shows mild gallbladder wall thickening Abdominal ultrasound showed cholelithiasis With abdomen/pelvis CT showed acute acalculous cholecystitis with gallbladder wall appeared thickening and edematous MRCP with cholelithiasis with normal size common hepatic common bile duct, no common hepatic or common bile duct stones - General Surgery consulted, recommendation appreciated-laparoscopic cholecystectomy today - Started NS at 100 cc/h - Patient made n.p.o. at midnight - Started Zofran 4 mg as needed for nausea vomiting - Started morphine 2 mg IV for pain - Started Protonix 40 mg IV daily - PTt/INR ordered, pain - Blood culture ordered, pending #Asymptomatic bradycardia Reports no symptoms of chest pain/ sob. Borderline heart rate of 58-60 Continue to monitor. F/U with PCP outpatient. Hospital management: Lines: peripheral IV Diet: N.p.o. at midnight GI prophylaxis: pantoprazole DVT prophylaxis: SCDs Disposition: MedSur for laparoscopic cholecystectomy today CODE STATUS: Full code Plan discussed with Dr. Ventura, Dr Jurado, and Dr. Piero Chiang MD PGY1 Attending Provider Attestation/Addendum I, Atiya Harry DO, attest that I was physically present for the contreras portions of the service and evaluated the patient with the resident and I reviewed and discussed the case with the resident and agree with the resident's findings and plans of care as documented above Patient seen and evaluated this AM. Patient underwent MRCP this AM that shows cholelithiasis and suspcion for cholecystitis. Negative ly's sign. However, patient reported pain that started on Friday after he at [facility] with jalapenos. He had been having nausea and vomiting since and had not eaten for the past few days. Case discussed with surgeon and plan for lap yenni this afternoon. Patient denies any fevers or chills.
--- NOTE | 2025-01-31 09:26 | PC.SS ---
Patient Ramírez Pierre is a 39 Year old male admitted for acalculous Cholecytis. SS attempted to meet with patient, however patient was getting an MRI, patient's at bedside. Patient reports she is patient's surrogate decision maker, [phone]. She informed SS that patient lives at home with her and does not utilize any source of DME to assist with ambulation. Patient is able to complete all ADL's independently. choice of pharmacy is [facility]. Patient does not have a PCP. At time of discharge patient will return back home. patient's will provide transportation. Discharge plan: Home Next of kin: , Erika Arthur [phone]
--- NOTE | 2025-01-31 10:13 | PC.SS ---
SS follow up note; Patient had MRI, pending Lap [place]. Patient will discharge home when medically cleared.
--- NOTE | 2025-01-31 11:16 | PD.SURCONS ---
HPI Consult details History of present illness: 39M presenting with abdominal pain. Pt reports pain began two days ago in the RUQ, severe 10/10 lasting for several hours. He went to ER and was advised to return for a HIDA yesterday but that could not be done so US was repeated with initial concern for cholecystitis. Pt also developed nausea/vomiting, denies fever or diarrhea and denies history of similar pain PMH: None PSHx: None Meds: None Allergies: NKDA Social hx: Nonsmoker Family hx: No known malignancy Review of Systems Review of Systems ROS Unobtainable: All systems reviewed & no additional complaints except as documented Meds Home Medications and Allergies Allergies Allergy/AdvReac Type Severity Reaction Status Date / Time No Known Allergies Allergy Verified 01/30/25 12:33 Exam Vital Signs Temp Pulse Resp BP Pulse Ox O2 Del Method 98.2 F 57 L 16 118/76 98 Room Air 01/31/25 08:00 01/31/25 08:00 01/31/25 08:00 01/31/25 08:00 01/31/25 08:00 01/31/25 08:00 Constitutional Constitutional: no acute distress Routine Respiratory Exam Respiratory: Present no resp distress Routine Abdominal Exam Abdominal: Present soft; Absent tenderness (negative Meeks's sign) or distended Results Results: Laboratory Laboratory results: results reviewed Results: Imaging US - abdomen: report reviewed Assessment & Plan Plan 39M with signs and symptoms of biliary colic. I explained that surgery could be done electively or today while he is admitted, and pt understandably prefers to have surgery [facility] so he can return to work sooner. I explained benefits/risks including bleeding, infection, need for conversion to open, injury to biliary structures requiring further procedures which could require transfer to another hospital, as well as postoperative hernia and diarrhea. All questions were answered and pt is agreeable to proceeding
--- NOTE | 2025-01-31 13:21 | PD.SUROPNT ---
Date of Procedure 01/31/25 Pre Op Diagnosis Symptomatic cholelithiasis Post Op Diagnosis Early acute cholecystitis Procedure Laparoscopic cholecystectomy Findings Mildly inflamed gallbladder with peritoneal attachments Procedure Description After discussion of risks and benefits, pt was brought to OR, general anesthesia was induced and he was prepped and draped in the usual sterile fashion. He received preoperative antibiotics. After timeout a supraumbilical incision was made with a #11 blade and the skin was elevated with towel clamps. A Veress needle was placed to the incision and proper positioning was confirmed with a drop test at which point the abdomen was insufflated to 15 mmHg. The Veress needle was then exchanged for a 5 mm camera using a Visiport technique. There were no signs of injury from the point of entry. 3 additional ports were placed under direct vision, 112 mm at the epigastrium, one 5 mm right subcostal and one 5 mm right anterior axillary line. Patient was placed in reverse Trendelenburg. The fundus of the gallbladder was grasped retracted cephalad and the infundibulum was grasped retracted laterally. There were some peritoneal attachments which were bluntly dissected. Using blunt dissection the critical view of safety was achieved and the cystic duct and cystic artery were clipped and transected in the usual fashion. The gallbladder was removed from the gallbladder bed using electrocautery. Hemostasis of the gallbladder bed was achieved using electrocautery. The specimen was removed in an Endo Catch bag via the epigastric port and the epigastric fascia was closed with 0 Vicryl suture using a Christofer-Alexandrea. Pneumoperitoneum was released and ports were removed under direct vision. Incisions were irrigated and infiltrated with half percent Marcaine for a total of 30 cc. Incisions were closed with 4 Monocryl and reinforced with Dermabond. Patient was extubated and brought to PACU in stable condition Pathology / specimen Other (Gallbladder) Estimated Blood Loss 25 Surgeon Nadeen Quiroga MD Surgical Staff Operation Date: 01/31/25 12:15 Case Staff Anesthesiologist: Mark Gonsales RN First Assistant: Alicja Malloy
--- NOTE | 2025-01-31 13:22 | ESDS_ITS ---
<Statement entered by Atiya Harry DO - 02/01/25 08:00> I, Atiya Harry DO, attest that I was physically present for the contreras portions of the service and evaluated the patient with the resident and I reviewed and discussed the case with the resident and agree with the resident's findings and plans of care as documented above <Statement entered by Aminta Ventura MD - 01/31/25 16:22> Note reviewed, I agree with most of its contents and agree with the patient's care as documented by Dr. Chiang. The patient's management plan was discussed with my attending physician Dr. Harry. Aminta Ventura, PGY-2 <Statement entered by Joyce Jurado MD - 01/31/25 16:10> I discussed with and supervised the compliance intern physician who took care of this patient. I personally saw and examined the patient and discussed the assessment and plan with the entire medicine team, including my attending Dr. Harry, I agree with most of the assessment and plan as documented below Joyce Jurado M.D. PGY-3 Planned Discharge Date 01/31/25 DS: Providers Provider Date of admission: 01/30/25 20:24 Primary care physician: Physician No Primary/Family Admitting Provider: Medhat Vasquez MD Attending Provider on Admission: Atiya Harry DO Consults: 01/30/25 20:30 Consult to General Surgery Stat Comment: Consulting Provider: Nadeen Quiroga Attending Provider on DC: Atiya Harry DO Discharging Provider: Atiya Harry DO DS: Diagnosis Problem List Completed Was Problem List Reviewed/Reconciled?: Yes Hospital Course Hospital Course Hospital course: Hospital Course Mr. Pierre is a 39-year-old male patient with no signal in the past medical history presented to the ED on 12/30/24 with a chief complaint of abdominal pain. Found to have acute cholecystitis on abdominal/pelvis CT. Admitted for evaluation and management of biliary colic vs cholecystitis. MRCP done showed cholelithiasis with mild edema around the gallbladder, but no stones seen in the ducts. Surgery was consulted, and patient was taken for laparoscopic cholecystectomy. Patient tolerated surgery well and was stable and medically cleared for discharge. Discharge instructions - follow up with your PCP in 1 week - continue taking your home meds as prescribed - follow up with your surgeon Dr. Quiroga in 1-2 weeks - no swimming pools or hot tubs or baths for 2 weeks or until cleared by surgeon - ok to shower in 48 hours. Diagnoses Acute cholecystitis - s/p lap yenni Plan discussed with Dr. Ventura, Dr Jurado, and Dr. Piero Chiang MD PGY1 Status at Discharge Cognitive/behavioral status at discharge: stable Functional status at discharge: independent ambulation Overall status at discharge: patient is progressing back to baseline Time Spent with Patient Time attestation: Total time spent providing and/or coordinating discharge services: Time spent: Greater than 30 minutes Exam Vital Signs Temp Pulse Resp BP Pulse Ox O2 Del Method 98.2 F 57 L 16 118/76 98 Room Air 01/31/25 08:00 01/31/25 08:00 01/31/25 08:00 01/31/25 08:00 01/31/25 08:00 01/31/25 08:00 Narrative Exam General: Alert, no acute distress.Conversational and non-toxic appearing. Skin: Warm, dry, intact. No rash or ecchymoses. Head: Normocephalic, atraumatic. Eye: Normal conjunctiva, PERRL. Throat: Oral mucosa moist. No obvious lesions in oropharynx. Cardiovascular: Regular rate and rhythm, no murmur, +S1/S2. Respiratory: Lungs are clear to auscultation, respirations unlabored, no crackles, no wheezing. Gastrointestinal: Soft, mild RUQ tenderness, non-distended. No guarding or rebound tenderness. small laproscopic incisions. Extremities: No edema, no cyanosis, no clubbing. Neuro: Alert and oriented x3.No focal deficits observed. Conversant, moving all extremities. No overt cerebellar signs/incoordination. Psychiatric: Cooperative, appropriate affect Discharge Plan Plan Patient Disposition: HOME (Self Care) Patient condition on transfer: Stable Prescriptions/Referrals Prescriptions/Med Rec: Continued hydrocodone-acetaminophen 5-325 mg tablet 1 tab PO Q6H MDD max 4 tabs per day PRN (Reason: pain) Qty: 12 0RF Discontinued ondansetron 4 mg tablet,disintegrating 4 mg PO Q8H Qty: 20 0RF Referrals: Nadeen Quiroga MD [Physician, General Surgery] Referral Note: You will receive a phone call to confirm a follow-up appointm ent with me in 2 weeks No Primary/Family,Physician [Primary Care Provider] Patient/Caregiver Discharge Instructions Other Discharge Activity Instructions:: You may resume showering in 2 days, on 02/02 It is okay to get incisions wet at that time, pat them dry after Your incisions have skin glue on them which will fall off on its own and does not need to be replaced Your stitches will not need to be removed Avoid bathing or swimming for 2 weeks During the surgery we fill your abdomen with air in order to see the structures. Some of this air tends to linger and cause pain that is referred to the shoulder as well as pain with deep breaths. This will get better with time. Being out of bed and walking will help the air to absorb faster You may take Percocet as needed for moderate to severe pain. You may also take ibuprofen in between doses of Percocet as needed or instead of Percocet for mild to moderate pain If you develop worsening pain, nausea/vomiting, fever or signs of jaundice please seek care in ER Education Materials: Preventing Surgical Site Infections Print Language: Indonesian Stand Alone Forms: Silvia Award Info., Patient Portal Info Letter Discharge Order Discharge Orders: Discharge (Routine); Ordered 01/31/25 Ordered By: Aminta Ventura Quality Discharge Quality Measures VTE prophylaxis
--- NOTE | 2025-01-31 13:25 | ESDS_ITS ---
Planned Discharge Date 01/31/25 DS: Providers Provider Date of admission: 01/30/25 20:24 Primary care physician: Physician No Primary/Family Admitting Provider: Medhat Vasquez MD Attending Provider on Admission: Atiya Harry DO Consults: 01/30/25 20:30 Consult to General Surgery Stat Comment: Consulting Provider: Nadeen Quiroga Attending Provider on DC: Nadeen Quiroga MD Discharging Provider: Nadeen Quiroga MD Diagnosis Discharge Diagnosis (1) Acute cholecystitis: Status: Acute Problem List Completed Was Problem List Reviewed/Reconciled?: Yes Hospital Course Brief History: 39M presenting with abdominal pain. Pt reports pain began two days ago in the RUQ, severe 10/10 lasting for several hours. He went to ER and was advised to return for a HIDA yesterday but that could not be done so US was repeated with initial concern for cholecystitis. Pt also developed nausea/vomiting, denies fever or diarrhea and denies history of similar pain PMH: None PSHx: None Meds: None Allergies: NKDA Social hx: Nonsmoker Family hx: No known malignancy Exam Vital Signs Temp Pulse Resp BP Pulse Ox O2 Del Method 98.2 F 57 L 16 118/76 98 Room Air 01/31/25 08:00 01/31/25 08:00 01/31/25 08:00 01/31/25 08:00 01/31/25 08:00 01/31/25 08:00 Discharge Plan Prescriptions/Referrals Prescriptions/Med Rec: No Action hydrocodone-acetaminophen 5-325 mg tablet 1 tab PO Q6H MDD max 4 tabs per day PRN (Reason: pain) Qty: 12 0RF ondansetron 4 mg tablet,disintegrating 4 mg PO Q8H Qty: 20 0RF Referrals: No Primary/Family,Physician [Primary Care Provider] Nadeen Quiroga MD [Physician, General Surgery] Referral Note: You will receive a phone call to confirm a follow-up appointment with me in 2 weeks Patient/Caregiver Discharge Instructions Other Discharge Activity Instructions:: You may resume showering in 2 days, on 02/02 It is okay to get incisions wet at that time, pat them dry after Your incisions have skin glue on them which will fall off on its own and does not need to be replaced Your stitches will not need to be removed Avoid bathing or swimming for 2 weeks During the surgery we fill your abdomen with air in order to see the structures. Some of this air tends to linger and cause pain that is referred to the shoulder as well as pain with deep breaths. This will get better with time. Being out of bed and walking will help the air to absorb faster You may take Percocet as needed for moderate to severe pain. You may also take ibuprofen in between doses of Percocet as needed or instead of Percocet for mild to moderate pain If you develop worsening pain, nausea/vomiting, fever or signs of jaundice please seek care in ER Education Materials: Preventing Surgical Site Infections Print Language: Kinyarwanda PROCEDURES: Procedure Date 01/31/25 Procedures Laparoscopic cholecystectomy
--- NOTE | 2025-01-31 13:38 | SUR.PHASEI ---
1338: Pt. AAOx4, vitals stable, breathing unlabored, no complaint of pain or nausea, x4 dermabond sites to ABD CDI, no active bleed noted, report received from MD Gonsales and Jess CHAN.
[2025-01-31] MEDS: fentaNYL CIT INJ 50 mCg/ML AMP 2ML 25 MCG IVP ×2 (14:04→14:10)
[2025-01-31] MEDS: HYDROmorphone INJ 2 MG/ML VIAL 0.4 MG IVP (14:15)
--- NOTE | 2025-01-31 14:35 | SUR.PHASEI ---
1435: Pt. AAOx4, vitals stable, breathing unlabored, complaint of slight pain, no complaint of nausea, x4 dermabond sites to ABD CDI, no active bleed noted, pt. tolerated sips of water well, gave report to Gertrudis CHAN prior to transfer to room 366. Family made aware of transfer to room.
== END 2025-01-31 16:20 | disposition home or self-care (01) | DRG 419 ==
LOC: SERX 19:02 → SERHOLD 20:41 → S3NX 22:59
PROVIDERS: Emergency Medicine; Surgery; Admitting Provider Student in an Organized Health Care Education/Training Program; Emergency Provider Emergency Medicine; Visit Provider Internal Medicine
PROC: 0FT44ZZ Resection of Gallbladder, Percutaneous Endoscopic Approach (ICD-10-PCS; CPT 47562; principal; 2025-01-31 12:00)
DX: K80.00 Calculus of gallbladder with acute cholecystitis without obstruction (principal); K76.0 Fatty (change of) liver, not elsewhere classified; R00.1 Bradycardia, unspecified
CPT/HCPCS: 36415; 74177; 74181; 76705; 80053; 83690; 83735; 84100; 85025; 85610; 85730; 87040; 96365; 96366; 96375; 99284; A4217; A4649; J0131; J0694; J0696; J1100; J1171; J1885; J2250; J2405; J2470; J2704; J3010; J3490; J7030; Q9967; J1836

== ENCOUNTER 2025-02-14 10:46 | Outpatient (AMB) | payer BC, SELFPAY ==
--- NOTE | 2025-02-14 10:56 | PD.GSCLVISIT ---
Vital Signs - [facility] 02/14/25 10:57 Height 1.88 m Height Method Measured Weight 92.76 kg Weight Measurement Method Standing Scale BMI 26.2 BP 132/89 H Blood Pressure Source Automatic Cuff Blood Pressure Location Left Upper Arm Position Sitting Respiration 18 Pulse 75 Pulse Source Monitor Temp 97.0 F Temp Source Temporal Artery Scan Pulse Oximetry (%) 98 Oxygen Delivery Method Room Air Med/Allergies Allergies & Medications Allergies No Known Allergies Allergy (Verified 02/14/25 10:57) Medication Reconciliation hydrocodone 5 mg-acetaminophen 325 mg tablet 1 tab PO Q6H PRN pain #12 tabs 01/30/25 [Rx Confirmed 02/14/25] MA Intake Visit Data Collection New Patient or Established: Established Patient (seen at [facility] within 3 years) Seen by Clinical Staff ONLY (RN/MA): No Reason for Visit:: LAPCHOLE FOLLOW UP Pain Present Currently: No Pain Scale Used: Ernandez-May/Numerical Forge Heater Required: No PCP or OBGYN visit in last 3 months: Yes Hx Now: No Do You Feel Safe at Home: Yes Authorities Contacted: N/A Smoking Status Smoking Status: Never smoker (PT SMOKES MARIJUANA) Immunization / Flu Flu Vaccine in the Last 12 Months: No Flu Vaccine Exclusion Criteria: No Exclusion Criteria Past Medical History Past Medical History NEUROLOGIC: Negative Seizures CARDIAC: Negative Cardiac Disorders or Congestive Heart Failure RESPIRATORY: Negative Chronic Obstructive Pulmonary Disease (COPD) or Asthma GENITOURINARY: Negative Renal Disease ENDOCRINE: Negative Diabetes Mellitus Type 1 or Diabetes Mellitus Type 2 HEMATOLOGIC: Negative Sickle Cell Disease OTHER HISTORY: Negative Autoimmune Disease, Blood Transfusions, Blood Transfusion Reaction, Anesthesia Reactions or Cancer Family History FAMILY HISTORY: Negative Family Cardiac Disorders Surgical History SURGICAL: Negative Endocrine Surgery, Ear Surgery or Joint Replacement Social History SMOKING STATUS: Smoking status: Never smoker (PT SMOKES MARIJUANA) ALCOHOL: Alcohol Intake: Current ALCOHOL FREQUENCY: Alcohol Intake Frequency: holidays/special occasions only HOUSING: Housing: House LIVES WITH: Lives With: Family HPI HPI Narrative HISTORY OF PRESENT ILLNESS I, Nadeen Quiroga, have obtained verbal consent from the patient, to be recorded during this encounter which may include, but not limited to, medical history, examination, treatment plans, and relevant health information.? Patient was informed that recording will be read and reviewed by myself before inclusion in the medical chart. 39M here for scheduled follow up after cholecystectomy 01/31/25. He reports a significant reduction in pain this week, which was initially managed with medication for a few days. His appetite remains robust, but he experiences frequent bowel movements and stomach discomfort after eating. He also reports diarrhea, characterized by the presence of yellow mucus. He mentions overeating and consuming foods that may not be suitable for his condition, leading him to revert to a diet of soups and oatmeal from the first week post-surgery. He has noticed that greasy foods upset his stomach. He reports no fevers or nausea. He is using metamucil which helps with the diarrhea. Pt did note some drainage from his epigastric incision since yesterday, it is clear and minimal. 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 ROS Review of Systems Systems Reviewed: All systems reviewed, normal except as documented Objective/Exam General General Appearance: alert, cooperative and well groomed Resp Respiratory exam: Absent respiratory distress Abdominal Abdominal exam: Present soft and incision (c/d/i, no erythema, no fluctuance or tenderness, no active drainage); Absent distention or tenderness Results Pathology of gallbladder reviewed Assessment & Plan Diagnosis / Problem List (1) Acute cholecystitis: Status: Acute Assessment & Plan: 39M s/p lap yenni 01/31 with findings of chronic cholecystitis, recovering well overall. I advised pt to avoid strenuous activity including lifting objects >10lbs for 6 weeks and provided a work note with the same info. Pt expressed understanding and is advised to reach out as needed with concerns or questions Office Procedures GNS Level of Care Nursing/Assessment Patient Status: Established Patient Nursing Assessment/Reassesment: Medication Reconciliation, Update PMH in EMR and Vital Signs Coordination of Care: Complex Care and Chronic Disease 1-5, Education Complex Pt/Fam, Consent,records obtained, informed consent, Results/Orders obtained and Staff clarify orders Established Patient Charge Established Patient Point Assignment: 95 Established Patient Point Charge: EP Level 3 (80-115) Patient Portal Questionaires Social History Living Situation History Housing: House Tobacco History Smoking Status: Never smoker (PT SMOKES MARIJUANA) Alcohol History Alcohol Intake: Current Alcohol Intake Frequency: holidays/special occasions only Substance Use History Substance Use: MARIJUANA Domestic Abuse History Do You Feel Safe at Home: Yes Review of Systems Report any current symptoms Only answer those that you have currently: Past Medical History Past Medical History Have you ever been diagnosed with any of the following: Neurological Problems Seizures: No Cardiology Problems Congestive Heart Failure: No Respiratory Problems Chronic Obstructive Pulmonary Disease (COPD): No Asthma: No Genital/Urinary Problems Renal Disease: No Endocrine Problems Diabetes Mellitus Type 1: No Diabetes Mellitus Type 2: No Blood Problems Sickle Cell Disease: No Other Problems Autoimmune Disease: No Blood Transfusions: No Blood Transfusion Reaction: No Anesthesia Reactions: No Cancer: No
[2025-02-14 10:57] VITALS: BP 132/89; PULSE 75; RESP 18; TEMP 36.1; O2SAT 98; BMI 26.2
== END 2025-02-14 11:22 | disposition home or self-care (01) ==
LOC: HODSRG 10:46
PROVIDERS: Supervising Provider Surgery; Visit Provider Surgery
DX: Z48.815 Encounter for surgical aftercare following surgery on the digestive system (principal)
CPT/HCPCS: 99213; G0463